=== PATIENT | male | born 1955 | race Hispanic/Latino ===

== ENCOUNTER 2020-07-13 15:31 | Emergency (ER) | payer OTHER ==
--- NOTE | 2020-07-13 16:46 | ER ---
Nurse's Notes [facility] Name: Addi Pierre Jr Age: 65 yrs Sex: Male : 1955 Arrival Date: 07/13/2020 Time: 15:35 Bed 7 Private MD: Iza Quesada C Diagnosis: Diseases of tongue-black hairy Presentation: 07/13 15:38 Chief complaint: Painless blister and discoloration on center of tongue x 2 days. hb Coronavirus screen: At this time, the client does not indicate any symptoms associated with coronavirus-19. Ebola Screen: No symptoms or risks identified at this time. Initial Sepsis Screen: Does the patient meet any 2 criteria? No. Patient's initial sepsis screen is negative. Does the patient have a suspected source of infection? No. Patient's initial sepsis screen is negative. Risk Assessment: Do you want to hurt yourself or someone else? Patient reports no desire to harm self or others. Onset of symptoms was July 12, 2020. 15:38 Method Of Arrival: Ambulatory hb 15:38 Acuity: WAYLON 4 hb Historical: - Allergies: 15:41 No Known Allergies; hb - Home Meds: 15:41 amitriptyline 10 mg Oral tab nightly [Active]; atorvastatin 20 mg oral tab 1 tab once hb daily [Active]; diltiazem HCl 120 mg Oral cpER 1 cap once daily [Active]; omeprazole 40 mg Oral cpDR 1 cap once daily [Active]; - PMHx: 15:41 Migraines; High Cholesterol; Hypertension; GERD; hb - PSHx: 15:41 None; hb - Immunization history:: Adult Immunizations up to date. - Social history:: Smoking status: Patient denies any tobacco usage or history of. - Family history:: not pertinent. Screenin:42 Abuse screen: Denies threats or abuse. Nutritional screening: No deficits noted. tw2 Tuberculosis screening: No symptoms or risk factors identified. Fall Risk None identified. Assessment: 15:42 Reassessment: provider at bedside at this time. General: Appears in no apparent tw2 distress. slender, well groomed. Pain: Denies pain. Neuro: Level of Consciousness is awake, alert, obeys commands, Oriented to person, place, time, situation. Cardiovascular: Patient's skin is warm and dry. Respiratory: Airway is patent Respiratory effort is even, unlabored, Respiratory pattern is regular, symmetrical. GI: No signs and/or symptoms were reported involving the gastrointestinal system. : No signs and/or symptoms were reported regarding the genitourinary system. EENT: raised brown spot noted in center of tongue. Musculoskeletal: Circulation, motion, and sensation intact. Range of motion: intact in all extremities. 16:59 Reassessment: Patient appears in no apparent distress at this time. No changes from tw2 previously documented assessment. Patient and/or family updated on plan of care and expected duration. Pain level reassessed. Patient is alert, oriented x 3, equal unlabored respirations, skin warm/dry/pink. Vital Signs: 15:38 BP 142 / 90; Pulse 67; Resp 16; Temp 98.2; Pulse Ox 100% on R/A; Pain 0/10; hb ED Course: 15:35 Patient arrived in ED. am2 15:35 Iza Quesada MD is Private Physician. am2 15:39 Triage completed. hb 15:41 Arm band placed on. hb 15:42 Trixie Leonard, RN is Primary Nurse. tw2 15:42 Ambrocio Dial MD is Attending Physician. shaheed 15:42 Bed in low position. Call light in reach. Pulse ox on. NIBP on. tw2 16:43 Iza Quesada MD is Referral Physician. [facility] [place] 16:56 No provider procedures requiring assistance completed. Patient did not have IV access tw2 during this emergency room visit. Administered Medications: No medications were administered Outcome: 16:45 Discharge ordered by . [facility] [place] 16:56 Discharged to home ambulatory. tw2 16:56 Condition: stable 16:56 Discharge instructions given to patient, Instructed on discharge instructions, follow up and referral plans. Demonstrated understanding of instructions, follow-up care. 16:59 Patient left the ED. tw2 Signatures: Ambrocio Dial MD MD cha Baxter, Heather RN LAINEY Trixie Leonard RN RN tw2 Susi Pope am2
--- NOTE | 2020-07-13 16:46 | EDPHYS ---
Physician Documentation [facility] Name: Addi Pierre Jr Age: 65 yrs Sex: Male : 1955 Arrival Date: 07/13/2020 Time: 15:35 Bed 7 Private MD: Iza Quesada C ED Physician Ambrocio Dial HPI: 07/13 16:37 This 65 yrs old Male presents to ER via Ambulatory with complaints of tongue shaheed sore. 16:37 The patient presents with pain. The problem is located in the tongue. Onset: The shaheed symptoms/episode began/occurred 2 week(s) ago. Duration: The symptoms are continuous, and are unchanged since they started. Modifying factors: The symptoms are alleviated by nothing, the symptoms are aggravated by nothing. Associated signs and symptoms: The patient has no apparent associated signs or symptoms. Severity of symptoms: At their worst the symptoms were mild, in the emergency department the symptoms are unchanged. The patient has not experienced similar symptoms in the past. Historical: - Allergies: 15:41 No Known Allergies; hb - Home Meds: 15:41 amitriptyline 10 mg Oral tab nightly [Active]; atorvastatin 20 mg oral tab 1 tab once hb daily [Active]; diltiazem HCl 120 mg Oral cpER 1 cap once daily [Active]; omeprazole 40 mg Oral cpDR 1 cap once daily [Active]; - PMHx: 15:41 Migraines; High Cholesterol; Hypertension; GERD; hb - PSHx: 15:41 None; hb - Immunization history:: Adult Immunizations up to date. - Social history:: Smoking status: Patient denies any tobacco usage or history of. - Family history:: not pertinent. ROS: 16:37 Constitutional: Negative for fever, chills, and weight loss, Eyes: Negative for injury, shaheed pain, redness, and discharge, Neck: Negative for injury, pain, and swelling, Cardiovascular: Negative for chest pain, palpitations, and edema, Respiratory: Negative for shortness of breath, cough, wheezing, and pleuritic chest pain, Abdomen/GI: Negative for abdominal pain, nausea, vomiting, diarrhea, and constipation, Back: Negative for injury and pain, : Negative for injury, bleeding, discharge, and swelling, MS/Extremity: Negative for injury and deformity, Skin: Negative for injury, rash, and discoloration, Neuro: Negative for headache, weakness, numbness, tingling, and seizure, Psych: Negative for depression, anxiety, suicide ideation, homicidal ideation, and hallucinations, Allergy/Immunology: Negative for hives, rash, and allergies, Endocrine: Negative for neck swelling, polydipsia, polyuria, polyphagia, and marked weight changes, Hematologic/Lymphatic: Negative for swollen nodes, abnormal bleeding, and unusual bruising. 16:37 ENT: Positive for black hairy tongue. Exam: 16:37 Constitutional: This is a well developed, well nourished patient who is awake, alert, shaheed and in no acute distress. Head/Face: Normocephalic, atraumatic. Eyes: Pupils equal round and reactive to light, extra-ocular motions intact. Lids and lashes normal. Conjunctiva and sclera are non-icteric and not injected. Cornea within normal limits. Periorbital areas with no swelling, redness, or edema. Neck: Trachea midline, no thyromegaly or masses palpated, and no cervical lymphadenopathy. Supple, full range of motion without nuchal rigidity, or vertebral point tenderness. No Meningismus. Chest/axilla: Normal chest wall appearance and motion. Nontender with no deformity. No lesions are appreciated. Cardiovascular: Regular rate and rhythm with a normal S1 and S2. No gallops, murmurs, or rubs. Normal PMI, no JVD. No pulse deficits. Respiratory: Lungs have equal breath sounds bilaterally, clear to auscultation and percussion. No rales, rhonchi or wheezes noted. No increased work of breathing, no retractions or nasal flaring. Abdomen/GI: Soft, non-tender, with normal bowel sounds. No distension or tympany. No guarding or rebound. No evidence of tenderness throughout. Back: No spinal tenderness. No costovertebral tenderness. Full range of motion. Male : Normal genitalia with no discharge or lesions. Skin: Warm, dry with normal turgor. Normal color with no rashes, no lesions, and no evidence of cellulitis. MS/ Extremity: Pulses equal, no cyanosis. Neurovascular intact. Full, normal range of motion. Neuro: Awake and alert, GCS 15, oriented to person, place, time, and situation. Cranial nerves II-XII grossly intact. Motor strength 5/5 in all extremities. Sensory grossly intact. Cerebellar exam normal. Normal gait. Psych: Awake, alert, with orientation to person, place and time. Behavior, mood, and affect are within normal limits. 16:37 ENT: Mouth: Tongue: tender, black hairy. Vital Signs: 15:38 BP 142 / 90; Pulse 67; Resp 16; Temp 98.2; Pulse Ox 100% on R/A; Pain 0/10; hb MDM: 15:42 Patient medically screened. [facility] 16:41 Differential diagnosis: dental caries, dental abscess. Data reviewed: vital signs, [facility] nurses notes. Data interpreted: press clipper: not applicable for this patient encounter. rate is 67 beats/min, rhythm is regular, Pulse oximetry: on room air. 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 Administered Medications: No medications were administered Disposition: 07/13/20 16:45 Discharged to Home. Impression: Diseases of tongue - black hairy. - Condition is Stable. - Discharge Instructions: Dental Mouthguards. - Medication Reconciliation Form, Thank You Letter, Antibiotic Education, Prescription Opioid Use form. - Follow up: Iza Quesada MD; When: 2 - 3 days; Reason: Recheck today's complaints, Continuance of care, Re-evaluation by your physician. - Problem is new. - Symptoms have improved. Signatures: Ambrocio Dial MD MD cha Baxter, Heather, LAINEY RN Trixie Leonard RN RN tw2 Corrections: (The following items were deleted from the chart) 16:59 16:45 07/13/2020 16:45 Discharged to Home. Impression: Diseases of tongue - black tw2 hairy. Condition is Stable. Forms are Medication Reconciliation Form, Thank You Letter, Antibiotic Education, Prescription Opioid Use. Follow up: Iza Quesada; When: 2 - 3 days; Reason: Recheck today's complaints, Continuance of care, Re-evaluation by your physician. Problem is new. Symptoms have improved. shaheed
[2020-07-13 17:04] VITALS: BP 142/90; TEMP 98.2; O2SAT 100
== END 2020-07-13 16:59 | disposition home or self-care (01) ==
LOC: ER 15:31
DX: K14.3 Hypertrophy of tongue papillae (principal); E78.00 Pure hypercholesterolemia, unspecified; I10 Essential (primary) hypertension; K21.9 Gastro-esophageal reflux disease without esophagitis
CPT/HCPCS: 99283